=== PATIENT | female | born 2000 | race Caucasian/White ===

== ENCOUNTER 2023-06-13 23:18 | Observation (INO) | payer OTHER ==
[2023-06-13 23:26] VITALS: TEMP 98
[2023-06-13] MEDS ORDERED: SODIUM CHLORIDE 0.9% 1,000 ML IV STA (23:32)
--- NOTE | 2023-06-13 23:36 | ED ---
Psych HPI - General Chief Complaint: Psychiatric Symptoms Stated Complaint: AMS Time Seen by Provider: 06/13/23 23:27 Source: patient, EMS, RN notes reviewed, old records reviewed Mode of arrival: EMS Limitations: no limitations, altered mental status - History of Present Illness Initial Comments: This is a 23-year-old female to the emergency department for evaluation patient presents with alleged overdose of Ambien secondary suicidal thoughts. Patient did take medication overdose as a suicide attempt patient took Ambien pills unknown amount she takes maybe 10-15. Denies other overdose medication other drugs or alcohol MD Complaint: suicidal ideation, feels depressed, altered mental status, other (Suicide attempt) -: unknown Associated Psychiatric Symptoms: depression, suicidal ideation, racing thoughts Quality: constant Improves With: none Worsens With: none Context: not taking psychiatric medications Associated Symptoms: denies other symptoms Treatments Prior to Arrival: placed on mental health hold If Self Harm: admits thoughts of self harm - Related Data Home Medications Medication Instructions Recorded Confirmed Citalopram Hydrobromide 40 mg PO DAILY 06/14/23 06/14/23 [Citalopram HBr] Zolpidem [Ambien] 5 mg PO HS PRN 06/14/23 06/14/23 Allergies Allergy/AdvReac Type Severity Reaction Status Date / Time No Known Allergies Allergy Verified 06/14/23 17:35 Review of Systems ROS Statement: Those systems with pertinent positive or pertinent negative responses have been documented in the HPI. ROS Other: All systems not noted in ROS Statement are negative. General Exam Limitations: altered mental status, physical limitation General appearance: alert, in no apparent distress, anxious Head exam: Present: atraumatic, normocephalic, normal inspection Eye exam: Present: normal appearance, PERRL, EOMI. Absent: scleral icterus, conjunctival injection, periorbital swelling ENT exam: Present: normal exam, mucous membranes moist Neck exam: Present: normal inspection. Absent: tenderness, meningismus, lymphadenopathy Respiratory exam: Present: normal lung sounds bilaterally. Absent: respiratory distress, wheezes, rales, rhonchi, stridor Cardiovascular Exam: Present: regular rate, normal rhythm, normal heart sounds. Absent: systolic murmur, diastolic murmur, rubs, gallop, clicks GI/Abdominal exam: Present: soft, normal bowel sounds. Absent: distended, tenderness, guarding, rebound, rigid Extremities exam: Present: normal inspection, full ROM, normal capillary refill. Absent: tenderness, pedal edema, joint swelling, calf tenderness Back exam: Present: normal inspection Neurological exam: Present: alert, oriented X3, CN II-XII intact Psychiatric exam: Present: normal affect, normal mood Skin exam: Present: warm, dry, intact, normal color. Absent: rash Course Vital Signs 06/13/23 06/14/23 06/14/23 23:21 00:44 00:50 Temperature 98 F Pulse Rate 94 96 90 Respiratory 10 L 18 Rate Blood Pressure 118/96 114/83 115/85 O2 Sat by Pulse 100 97 Oximetry 06/14/23 06/14/23 06/14/23 01:00 01:10 01:20 Temperature Pulse Rate 84 98 86 Respiratory Rate Blood Pressure 115/85 O2 Sat by Pulse Oximetry 06/14/23 06/14/23 06/14/23 01:30 01:40 02:00 Temperature Pulse Rate 92 83 90 Respiratory Rate Blood Pressure O2 Sat by Pulse Oximetry 06/14/23 06/14/23 06/14/23 02:10 02:20 02:30 Temperature Pulse Rate 116 H 81 84 Respiratory Rate Blood Pressure O2 Sat by Pulse Oximetry 06/14/23 06/14/23 06/14/23 02:40 02:50 03:00 Temperature Pulse Rate 85 80 92 Respiratory Rate Blood Pressure O2 Sat by Pulse Oximetry 06/14/23 06/14/23 06/14/23 03:10 03:20 03:30 Temperature Pulse Rate 102 H 105 H 96 Respiratory Rate Blood Pressure O2 Sat by Pulse Oximetry 06/14/23 06/14/23 06/14/23 03:40 03:50 05:40 Temperature Pulse Rate 81 99 Respiratory Rate Blood Pressure 128/81 O2 Sat by Pulse Oximetry 06/14/23 06/14/23 06/14/23 05:50 09:42 11:29 Temperature Pulse Rate 83 102 H Respiratory 17 17 18 Rate Blood Pressure 128/81 106/70 O2 Sat by Pulse 95 98 Oximetry - Reevaluation(s) Reevaluation #1: 06/13/23 23:35 Medical records reviewed Reevaluation #2: 06/14/23 05:42 Medical clear for psychiatric evaluation Reevaluation #3: 06/14/23 05:43 Patient evaluated by psychiatry, still remained mildly somnolent, will admit for medical secondary to overdose Reevaluation #4: 06/13/23 23:35 Was pt. sent in by a medical professional or institution (MANI Barfield, STORE CLERK CHECKER, urgent care, hospital, or halfway...) When possible be specific @ -no Did you speak to anyone other than the patient for history (EMS, parent, family, police, friend...)? What history was obtained from this source @ -no Did you review nursing and triage notes (agree or disagree)? Why? @ -agree Are old charts reviewed (outside hosp., previous admission, EMS record, old EKG, old radiological studies, urgent care reports/EKG's, halfway records)? Report findings @ -yes Differential Diagnosis (chest pain, altered mental status, abdominal pain women, abdominal pain men, vaginal bleeding, weakness, fever, dyspnea, syncope, headache, dizziness, GI bleed, back pain, seizure, CVA, palpatations, mental health, musculoskeletal)? @ -prior EKG interpreted by me (3pts min.). @ -yes X-rays interpreted by me (1pt min.). @ -no CT interpreted by me (1pt min.). @ -no U/S interpreted by me (1pt. min.). @ -no What testing was considered but not performed or refused? (CT, X-rays, U/S, labs)? Why? @ -none What meds were considered but not given or refused? Why? @ -none Did you discuss the management of the patient with other professionals (pro fessionals i.e. MANI Barfield, STORE CLERK CHECKER, lab, RT, psych nurse, vp digital marketing social media and crm, lead printer, teacher, chairman & chief executive officer, case worker)? Give summary @ -no Was smoking cessation discussed for >3mins.? @ -no Was critical care preformed (if so, how long)? @ -no Were there social determinants of health that impacted care today? How? (Homelessness, low income, unemployed, alcoholism, drug addiction, transportation, low edu. Level, literacy, decrease access to med. care, fci, rehab)? @ -none Was there de-escalation of care discussed even if they declined (Discuss DNR or withdrawal of care, Hospice)? DNR status @ -no What co-morbidities impacted this encounter? (DM, HTN, Smoking, COPD, CAD, Cancer, CVA, ARF, Chemo, Hep., AIDS, mental health diagnosis, sleep apnea, morbid obesity)? @ -none Was patient admitted / discharged? Hospital course, mention meds given and route, prescriptions, significant lab abnormalities, going to OR and other pertinent info. @ - 23-year-old female the admitted for psychiatric evaluation and treatment, admitted as medical overdose secondary to persistent somnolence Admitted Undiagnosed new problem with uncertain prognosis? @ -no Drug Therapy requiring intensive monitoring for toxicity (Heparin, Nitro, Insulin, Cardizem)? @ -no Were any procedures done? @ -no Diagnosis/symptom? @ -Overdose, suicide attempt Acute, or Chronic, or Acute on Chronic? @ -Acute Uncomplicated (without systemic symptoms) or Complicated (systemic symptoms)? @ -Complicated Side effects of treatment? @ -no Exacerbation, Progression, or Severe Exacerbation? @ -exacerbation Poses a threat to life or bodily function? How? (Chest pain, [place], [place], pneumonia, PE, COPD, DKA, ARF, appy, cholecystitis, CVA, Diverticulitis, Homicidal, Suicidal, threat to staff... and all critical care pts) @ -yes - Consultations Consultation #1: Spoke with PMH regarding overdose admission psychiatric evaluation are agreeable Medical Decision Making - Medical Decision Making 23-year-old female the admitted for psychiatric evaluation and treatment, admitted as medical overdose secondary to persistent somnolence - Lab Data Result diagrams: 06/13/23 23:32 06/13/23 23:32 Lab Results 06/13/23 06/13/23 Range/Units 23:32 23:32 WBC 8.5 (3.8-10.6) k/uL RBC 4.27 (3.80-5.40) m/uL Hgb 13.3 (11.4-16.0) gm/dL Hct 38.0 (34.0-46.0) % MCV 89.0 (80.0-100.0) fL MCH 31.0 (25.0-35.0) pg MCHC 34.9 (31.0-37.0) g/dL RDW 13.0 (11.5-15.5) % Plt Count 247 (150-450) k/uL MPV 8.9 Neutrophils % 49 % Lymphocytes % 39 % Monocytes % 7 % Eosinophils % 2 % Basophils % 1 % Neutrophils # 4.2 (1.3-7.7) k/uL Lymphocytes # 3.3 (1.0-4.8) k/uL Monocytes # 0.6 (0-1.0) k/uL Eosinophils # 0.2 (0-0.7) k/uL Basophils # 0.1 (0-0.2) k/uL Sodium 134 L (137-145) mmol/L Potassium 4.8 (3.5-5.1) mmol/L Chloride 108 H (98-107) mmol/L Carbon Dioxide 19 L (22-30) mmol/L Anion Gap 7 mmol/L BUN 7 (7-17) mg/dL Creatinine 0.56 (0.52-1.04) mg/dL Est GFR (CKD-EPI)AfAm >90 (>60 ml/min/1.73 sqM) Est GFR (CKD-EPI)NonAf >90 (>60 ml/min/1.73 sqM) Glucose 80 (74-99) mg/dL Calcium 8.6 (8.4-10.2) mg/dL Total Bilirubin 0.7 (0.2-1.3) mg/dL AST 40 H (14-36) U/L ALT 28 (4-34) U/L Alkaline Phosphatase 67 (38-126) U/L Total Protein 7.0 (6.3-8.2) g/dL Albumin 3.7 (3.5-5.0) g/dL Lipase 89 (23-300) U/L Salicylates <1.0 mg/dL Acetaminophen <10.0 ug/mL Serum Alcohol <10 mg/dL - EKG Data -: EKG Interpreted by Me (EKG is sinus 81 VA 159 QRS 86 QTc 429) Disposition Clinical Impression: Depression, Suicidal ideation, Attempted suicide, Altered mental status Disposition: ADMITTED IP TO THIS HOSP Condition: Stable Is patient prescribed a controlled substance at d/c from ED?: No Time of Disposition: 05:40
[2023-06-14 00:17] LABS: ALT 28 U/L (4-34); Acetaminophen <10.0 ug/mL; African American GFR (CKD) >90 (>60 ml/min/1.73 sqM); Alcohol <10 mg/dL; Anion Gap 7 mmol/L; Basophils # (A) 0.1 k/uL (0-0.2); Basophils % (A) 1 %; Blood Urea Nitrogen 7 mg/dL (7-17); Calcium 8.6 mg/dL (8.4-10.2); Carbon Dioxide 19 mmol/L (22-30); Chloride 108 mmol/L (98-107); Eosinophils # (A) 0.2 k/uL (0-0.7); Eosinophils % (A) 2 %; Glucose 80 mg/dL (74-99); HGB 13.3 gm/dL (11.4-16.0); Lipase 89 U/L (23-300); Lymphocytes # (A) 3.3 k/uL (1.0-4.8); Lymphocytes % (A) 39 %; MCHC 34.9 g/dL (31.0-37.0); Mean Platelet Volume 8.9; Monocytes # (A) 0.6 k/uL (0-1.0); Monocytes % (A) 7 %; Neutrophils # (A) 4.2 k/uL (1.3-7.7); Neutrophils % (A) 49 %; Non-African American GFR(CKD) >90 (>60 ml/min/1.73 sqM); Platelet Count 247 k/uL (150-450); RBC 4.27 m/uL (3.80-5.40); Salicylate <1.0 mg/dL; Sodium 134 mmol/L (137-145); Total Bilirubin 0.7 mg/dL (0.2-1.3); WBC 8.5 k/uL (3.8-10.6)
[2023-06-14 00:32] LABS: Potassium 4.8 mmol/L (3.5-5.1)
[2023-06-14 00:33] LABS: AST 40 U/L (14-36); Albumin 3.7 g/dL (3.5-5.0); Alkaline Phosphatase 67 U/L (38-126)
[2023-06-14] MEDS ORDERED: NALOXONE 0.4 MG/ML 1 ML VIAL IV PRN (05:33)
[2023-06-14] MEDS ORDERED: ONDANSETRON 4 MG/2 ML VIAL IVP PRN (05:33)
[2023-06-14 05:59] LABS: Appearance,Urine Clear (Clear); Bilirubin,Urine Negative (Negative); Blood,Urine Negative (Negative); Color,Urine Yellow; Glucose,Urine (UA) Negative (Negative); Ketones,Urine Negative (Negative); Leukocyte Esterase,Urine Negative (Negative); Nitrite,Urine Negative (Negative); PH, Urine 6.5 (5.0-8.0); Protein,Urine Negative (Negative); Specific Gravity,Urine 1.015 (1.001-1.035); Urobilinogen,Urine 0.2 mg/dL (<2.0)
[2023-06-14 06:13] LABS: Amphetamine Screen,Urine Not Detected (NotDetected); Barbiturate Screen,Urine Not Detected (NotDetected); Benzodiazepines Screen,Urine Not Detected (NotDetected); Cocaine Screen,Urine Not Detected (NotDetected); Methadone Screen, Urine Not Detected (NotDetected); Opiate Screen,Urine Not Detected (NotDetected); Oxycodone Screen, Urine Not Detected (NotDetected); Phencyclidine Screen,Urine Not Detected (NotDetected); Tricyclic Antidepressant,Urine Not Detected (NotDetected); Urn Cannabinoid Scrn Detected (NotDetected)
[2023-06-14 11:30] VITALS: BP 106/70; PULSE 102; RESP 18
--- NOTE | 2023-06-14 12:30 | P.HPIM ---
History of Present Illness 23 year-old female admitted for Ambien overdose took about 10-15 pills. And to commit suicide patient is depressed. Patient does have a urine drug screen positive for marijuana but doesn't drink alcohol on doesn't use any other drugs. Patient is still drowsy but the leg is more awake now. Labs and EKG are essentially within normal limits except for serum sodium of 134. REVIEW OF SYSTEMS: CONSTITUTIONAL: No fever, no malaise, no fatigue. HEENT: No recent visual problems or hearing problems. Denied any sore throat. CARDIOVASCULAR: No chest pain, orthopnea, PND, no palpitations, no syncope. PULMONARY: No shortness of breath, no cough, no hemoptysis. GASTROINTESTINAL: No diarrhea, no nausea, no vomiting, no abdominal pain. NEUROLOGICAL: No headaches, no weakness, no numbness. HEMATOLOGICAL: Denies any bleeding or petechiae. GENITOURINARY: Denies any burning micturition, frequency, or urgency. MUSCULOSKELETAL/RHEUMATOLOGICAL: Denies any joint pain, swelling, or any muscle pain. ENDOCRINE: Denies any polyuria or polydipsia. The rest of the 14-point review of systems is negative. PHYSICAL EXAMINATION: GENERAL: The patient is alert and oriented x3, not in any acute distress. Well developed, well nourished. HEENT: Pupils are round and equally reacting to light. EOMI. No scleral icterus. No conjunctival pallor. Normocephalic, atraumatic. No pharyngeal erythema. No thyromegaly. CARDIOVASCULAR: S1 and S2 present. No murmurs, rubs, or gallops. PULMONARY: Chest is clear to auscultation, no wheezing or crackles. ABDOMEN: Soft, nontender, nondistended, normoactive bowel sounds. No palpable organomegaly. MUSCULOSKELETAL: No joint swelling or deformity. EXTREMITIES: No cyanosis, clubbing, or pedal edema. NEUROLOGICAL: Gross neurological examination did not reveal any focal deficits. SKIN: No rashes. Assessment and plan -Ambien overdose: Patient probably will be okay to be discharged to psychiatric floor later today when she is more awake. -Hyponatremia mild hyponatremia: Continue with IV fluids -Hyperchloremic metabolic acidosis expected to improve with discontinue additional IV fluids -Depression and suicidal ideation: Management as per psychiatry Patient probably can be discharged later today Medications and Allergies Home Medications Medication Instructions Recorded Confirmed Type Citalopram Hydrobromide 40 mg PO DAILY 06/14/23 06/14/23 History [Citalopram HBr] Zolpidem [Ambien] 5 mg PO HS PRN 06/14/23 06/14/23 History Allergies Allergy/AdvReac Type Severity Reaction Status Date / Time Unable to Assess Allergy Verified 06/14/23 09:12 Physical Exam Vitals: Vital Signs Temp Pulse Resp BP Pulse Ox 06/14/23 11:29 102 H 18 106/70 98 06/14/23 09:42 17 06/14/23 05:50 83 17 128/81 95 06/14/23 05:40 128/81 06/14/23 03:50 99 06/14/23 03:40 81 06/14/23 03:30 96 06/14/23 03:20 105 H 06/14/23 03:10 102 H 06/14/23 03:00 92 06/14/23 02:50 80 06/14/23 02:40 85 06/14/23 02:30 84 06/14/23 02:20 81 06/14/23 02:10 116 H 06/14/23 02:00 90 06/14/23 01:40 83 06/14/23 01:30 92 06/14/23 01:20 86 06/14/23 01:10 98 06/14/23 01:00 84 115/85 06/14/23 00:50 90 18 115/85 97 06/14/23 00:44 96 114/83 06/13/23 23:21 98 F 94 10 L 118/96 100 Intake and Output 06/13/23 06/14/23 06/14/23 22:59 06:59 14:59 Other: Weight 108.862 kg Results CBC & Chem 7: 06/13/23 23:32 06/13/23 23:32 Labs: Abnormal Lab Results - Last 24 Hours (Table) 06/13/23 06/14/23 Range/Units 23:32 05:37 Sodium 134 L (137-145) mmol/L Chloride 108 H (98-107) mmol/L Carbon Dioxide 19 L (22-30) mmol/L AST 40 H (14-36) U/L U Marijuana (THC) Screen Detected H (NotDetected)
--- NOTE | 2023-06-14 13:33 | P.CN ---
Psychiatric Consult - . Consult date: 06/14/23 Consult:: 06/14/23 12:53 IDENTIFYING DATA: This patient is a 23 yo female, currently living with her ex-mikey's mother in there have, she works as a massage therapist, she has no kids. REASON FOR REFERRAL: Psychiatry was consulted for OD and Suicide attempt HISTORY OF PRESENT ILLNESS: The patient presented to the hospital yesterday after an overdose on Ambien as a suicide attempt. Patient apparently took 10-15 pills of her Ambien the day before for coming into the hospital. Patient's urine drug screen was positive for THC. Patient was seen today in her room and agreeable to speak to keno writer/runner. She appeared to be fairly constricted in affect, appears to be depressed and was somewhat guarded/evasive. She did state that she was feeling alone and sad. She claims that she isn't having poor sleep lately as well. Claims that she has had significant stressors as of late including her mother dying by suicide attempt about 2 years ago. Patient also states that her father recently was imprisoned for attempted murder. She claims that about a month ago her and her fianc split up due to infidelity reasons. States that she has been finding it difficult to cope with this and has been staying at her ex-mikey's mothers house. States that her depression has been getting worse for about 1-2 months. States that she has high levels of anxiety. Claims that she overdosed at home in her room and then came out of the kitchen for dinner however was noticed by the family that she was stumbling and was confused and they called EMS. Patient claims that she is still having suicidal thoughts, no intent or plan at this time, denying any homicidal ideations. Patient denies any auditory, visual hallucinations and denies any paranoia or delusions. Patients admits to using cannabis occasionally, mainly edibles. She states that her sleep has been poor appetite has been poor as well. PAST PSYCHIATRIC HISTORY: Patient has a a history of bipolar and depression. Patient states that she is currently on Celexa 40 mg daily and also Ambien for sleep. Patient denies any previous psychiatric hospitalizations. She claims that she follows up at [facility] with her counsellor. States that she had 1 suicide attempt by overdose several years ago. PAST MEDICAL HISTORY: see medical H and P ALLERGIES: as per EMR. CHEMICAL DEPENDENCY HISTORY: as per HPI. FAMILY PSYCHIATRIC/SUBSTANCE USE HISTORY: Claims that her mother committed suicide, father abused alcohol and was bipolar. She states that her sister also a diagnosis of bipolar disorder. SOCIAL HISTORY: Patient was born and raised in [facility]. States that she completed high school and did massage therapy school. States that she does not have any legal history. Claims that she is currently living in a house with her ex-fianc's mother, she works as a massage therapist. She has no kids. MENTAL STATUS EXAM: General Appearance: Patient appears to be overweight, wearing glasses, stated age is alert, guarded/evasive, poor eye contact. Patient appears to have fair hygiene and grooming wearing hospital gown Behavior: Patient is calmly lying in bed without any agitated behavior. Constricted. Guarded. Speech: Patient's speech is fluent and nonpressured. Monotone. Mood/Affect: Patient reports their mood is "depressed", affect is congruent and constricted Suicidality/Homicidality: Patient denies having any suicidal or homicidal ideation intent or plan. Perceptions: Patient denies any visual hallucinations and denies any auditory hallucinations Though content/process: There is no evidence of any delusional thought content and thought process is linear and goal-directed. concrete. Memory and concentration: AOX3, grossly intact for the purposes of this session. Can spell "WORLD" backwards Judgment and insight: poor IMPRESSIONS: Suicide attempt by overdosing on medication Depressive disorder NOS, likely bipolar depression cannabis use disorder mild PLAN: -At this time patient DOES meet criteria for inpatient psychiatric admission. -Would recommend the following medication changes/additions: d/c Ambien and Celexa, start zoloft 50 mg daily for mood/anxiety, lamictal 25 mg bid for mood stabilization/depression. trazodone 50 mg qhs for sleep -Continue 1:1 sitter for safety until patient is safely transferred to the MHU -Cannot leave AMA at this time. Patient will need a petition and certification if attempting to leave AMA. -When medically stable, patient is eligible for transfer to a psych bed when available. -Communicated plan to patient's nurse and EPS nurse -Psychiatry will sign off at this time -Please contact with any questions. 06/14/23 13:25
[2023-06-15] MEDS ORDERED: CITALOPRAM HYDROBROMIDE 20 MG TAB PO SCH (09:00)
--- NOTE | 2023-06-15 17:15 | P.DS ---
Providers Date of admission: 06/14/23 05:33 Attending physician: Tyson Cadet Consults: 06/14/23 05:33 Consult Physician Routine Consulting Provider: Jason Levy Consult Reason/Comments: SI,OD Do you want consulting provider notified?: Yes Primary care physician: [facility] Hospital Course: Final Diagnosis -Ambien overdose: -Hyponatremia mild hyponatremia: Continue with IV fluids -Hyperchloremic metabolic acidosis expected to improve with discontinue additional IV fluids -Depression and suicidal ideation: Management as per psychiatry Discharge Disposition Patient is more awake and medically stable to discharge to inpatient psychiatry floor. Medications per psychiatry recommending to stay off ambien. 23 year-old female admitted for Ambien overdose took about 10-15 pills. And to commit suicide patient is depressed. Patient does have a urine drug screen positive for marijuana but doesn't drink alcohol on doesn't use any other drugs. Patient is still drowsy but the leg is more awake now. Labs and EKG are essentially within normal limits except for serum sodium of 134. Patient has been evalauted by psychiatry and recommended for [facility] psych treatment and patient is agreebale. [facility] be [facility] today. The impression and plan of care has been dictated by Shakira Bolanos Nurse Practitioner as directed. Dr. Charito MD I have performed a history and physical examination and medical decision making of this patient, discussed the same with the dictator, and agree with the dictators assessment and plan as written, documented as a scribe. Based on total visit time, I have performed more than 50% of this visit. Patient Condition at Discharge: Stable Plan - Discharge Summary New Discharge Prescriptions: No Action Citalopram Hydrobromide [Citalopram HBr] 40 mg PO DAILY Zolpidem [Ambien] 5 mg PO HS PRN PRN Reason: Insomnia Discharge Medication List Citalopram Hydrobromide [Citalopram HBr] 40 mg PO DAILY 06/14/23 [History] Zolpidem [Ambien] 5 mg PO HS PRN 06/14/23 [History] Follow up Appointment(s)/Referral(s): None,Stated [REFERRING] - 1-2 days Discharge Disposition: TRANSFER TO PSYCH HOSP/UNIT
== END 2023-06-14 17:22 ==
LOC: EC 23:18 → 5NMEDONC 06-14 05:33
PROVIDERS: ADMIT Hospitalist; ATTEND Hospitalist
DX: T42.6X2A Poisoning by other antiepileptic and sedative-hypnotic drugs, intentional self-harm, initial encounter (principal); Z79.899 Other long term (current) drug therapy; F32.A Depression, unspecified; E87.1 Hypo-osmolality and hyponatremia; E87.29 Other acidosis; E87.8 Other disorders of electrolyte and fluid balance, not elsewhere classified; R45.851 Suicidal ideations; F41.9 Anxiety disorder, unspecified; Z81.8 Family history of other mental and behavioral disorders; Z81.1 Family history of alcohol abuse and dependence
CPT/HCPCS: 96360; 99285; 36415; 93005; 80053; 83690; 85025; 81003; 81025; 80306; 80143; 87635; 80179; G0378; G0480; 80320

== ENCOUNTER 2023-06-14 17:32 | Inpatient (IN) | payer MEDICAID ==
[2023-06-14] MEDS ORDERED: ACETAMINOPHEN TAB 325 MG TAB PO PRN (17:35)
[2023-06-14] MEDS ORDERED: MAGNESIUM HYDROXIDE 2,400 MG/30 ML CUP PO PRN (17:35)
[2023-06-14] MEDS ORDERED: MAG HYDROX/AL HYDROX/SIMETH 30 ML CUP PO PRN (17:35)
[2023-06-14] MEDS ORDERED: OLANZapine 10 MG VIAL IM PRN (17:43)
[2023-06-14] MEDS ORDERED: OLANZapine 5 MG TAB PO PRN (17:43)
[2023-06-14] MEDS ORDERED: hydrOXYzine HCL 50 MG/ML 1 ML VIAL IM PRN (17:44)
[2023-06-14] MEDS ORDERED: hydrOXYzine pamoate 25 MG CAP PO PRN (17:45)
[2023-06-14] MEDS: traZODone HCL 50 MG TAB PO SCH (20:59)
[2023-06-14] MEDS: lamoTRIgine 25 MG TAB PO SCH (20:59)
[2023-06-15] MEDS: SERTRALINE 50 MG TAB PO SCH (09:17)
[2023-06-15] MEDS: lamoTRIgine 25 MG TAB PO SCH ×2 (09:17→20:46)
--- NOTE | 2023-06-15 11:28 | P.HP ---
Psychiatric H&P - . H&P Date: 06/15/23 History & Physical: Allergies Allergy/AdvReac Type Severity Reaction Status Date / Time No Known Allergies Allergy Verified 06/14/23 17:35 Vital Signs Temp 98.6 F 06/15/23 06:36 Pulse 72 06/15/23 06:36 Resp 19 06/15/23 06:36 BP 123/67 06/15/23 06:36 Pulse Ox 95 06/15/23 06:36 FiO2 Intake & Output 06/14/23 06/15/23 06/15/23 18:59 06:59 18:59 Weight 98 kg Laboratory Last Values TSH 1.690 mIU/L (0.465-4.680) 06/15/23 08:29 06/15/23 11:21 This is a 23-year-old female with a long history of depressive disorder who was hospitalized after patient reports that she took an overdose for about 12 Ambien tablets She does not know the dosage Patient reports that she was frustrated and angry over multiple issues that includes her boyfriend who has been cheating on her She also reports history of chronic depression for the last 5 years She said that she was been seeing her primary care doctor but has never seen a psychiatrist consistently for follow-up She says that she is currently living with her ex-fianc's mother was supportive and plans to continue to live with her She reports that she has multiple psychosocial stressors including her mother who committed suicide about 5 years ago She says that her father is in detention she says that she finished high school but has not worked She denies any other substance use Said that she saw Dr. Hines briefly on the medical floor before her transfer to the psychiatric unit Past history personal social history patient remains very vague and superficial Patient says that she is currently not working and is living with her boyfriend's mother She said that she would like to work on having a new place of her own since she is breaking up with her boyfriend Patient denies any other support system she denies any alcohol or substance use Mental status examination: General Appearance: Patient appears to be stated age is alert, directable, and attempts to cooperate. Patient appears to have slightly disheveled hygiene and grooming. Behavior: Patient is seated without any agitated behavior. Normal psychomotor activity. Eye contact is appropriate. Speech: Patient's speech is fluent and nonpressured. Mood/Affect: Patient reports their mood is depressed, affect is congruent and appears to be downcast Suicidality/Homicidality: Patient reports chronic suicidal ideation. She reports no intention or plan at this time. She denies any homicidal ideation, intention, and/or plan. Perceptions: Patient denies any visual hallucinations and denies any auditory hallucinations Though content/process: There is no evidence of any delusional thought content and thought process is linear and goal-directed. Memory and concentration: AOX3, grossly intact for the purposes of this session. Can spell "WORLD" backwards Judgment and insight: poor STRENGTHS/WEAKNESSES: Strength is that the patient is resilient. Weakness is that the patient has poor frustration tolerance and impulse control. INTELLECT: average IMPRESSIONS: Major depressive disorder recurrent Rule out Cluster B personality disorder - borderline personality disorder PLAN: -Patient is admitted under voluntary status to MHU for stabilization of psychiatric symptoms and safety. Patient signed adult voluntary form and medication consent and is placed in patient's chart. -Medications : Patient has already been started on Zoloft for depression -Zyprexa and Vistaril PRN for agitation/aggression -Patient was informed of the risks, benefits and side effects of the medication and patient verbally consented to taking the medications. -Internal Medicine consult to perform medical evaluation and physical. -SW on board for discharge planning. Encourage patient to participate in groups to work on coping skills. 06/15/23 11:37 Thang Black M.D.
[2023-06-15 14:54] VITALS: BMI 33.8
--- NOTE | 2023-06-15 15:20 | P.CONS ---
History of Present Illness - Reason for Consult Consult date: 06/15/23 - History of Present Illness This is a 23 year-old female admitted for Ambien overdose took about 10-15 pills. This was a suicide attempt patient reports increased feelings of depression due to life stessors including living situation and breaking up with her boyfriend. Patients mother committed suicide 5 years ago and her father is in group home. Not working currently. Patient does have a urine drug screen positive for marijuana but doesn't drink alcohol and denies use any other drugs. Patient is more awake now. Labs and EKG are essentially within normal limits except for serum sodium of 134. No reported medical history other than insomnia and depression. Had thyroid function and hgba1c checked and both normal. Hemodynamically stable. REVIEW OF SYSTEMS: CONSTITUTIONAL: No fever, no malaise, no fatigue. HEENT: No recent visual problems or hearing problems. Denied any sore throat. CARDIOVASCULAR: No chest pain, orthopnea, PND, no palpitations, no syncope. PULMONARY: No shortness of breath, no cough, no hemoptysis. GASTROINTESTINAL: No diarrhea, no nausea, no vomiting, no abdominal pain. NEUROLOGICAL: No headaches, no weakness, no numbness. HEMATOLOGICAL: Denies any bleeding or petechiae. GENITOURINARY: Denies any burning micturition, frequency, or urgency. MUSCULOSKELETAL/RHEUMATOLOGICAL: Denies any joint pain, swelling, or any muscle pain. ENDOCRINE: Denies any polyuria or polydipsia. The rest of the 14-point review of systems is negative. PHYSICAL EXAMINATION: GENERAL: The patient is alert and oriented x3, not in any acute distress. Well developed, well nourished. HEENT: Pupils are round and equally reacting to light. EOMI. No scleral icterus. No conjunctival pallor. Normocephalic, atraumatic. No pharyngeal erythema. No thyromegaly. CARDIOVASCULAR: S1 and S2 present. No murmurs, rubs, or gallops. PULMONARY: Chest is clear to auscultation, no wheezing or crackles. ABDOMEN: Soft, nontender, nondistended, normoactive bowel sounds. No palpable organomegaly. MUSCULOSKELETAL: No joint swelling or deformity. EXTREMITIES: No cyanosis, clubbing, or pedal edema. NEUROLOGICAL: Gross neurological examination did not reveal any focal deficits. SKIN: No rashes. Assessment and Plan Suicide attempt with overdose on ambien History of depression Insomnia GI prophylaxis Full Code Plan Medical chart reviewed, TSH normal and HgbA1C normal. Ambien is discontinued on discharge Started on zoloft and all other medications per psychiatry. Thank you for this consultation we will continue to follow along as needed this hospital stay. The impression and plan of care has been dictated by Shakira Bolanos, Nurse Practitioner as directed. Dr. Charito MD I have performed a history and physical examination and medical decision making of this patient, discussed the same with the dictator, and agree with the dictators assessment and plan as written, documented as a scribe. Based on total visit time, I have performed more than 50% of this visit. Past Medical History Past Medical History: No Reported History History of Any Multi-Drug Resistant Organisms: None Reported Past Surgical History: No Surgical Hx Reported Past Anesthesia/Blood Transfusion Reactions: No Reported Reaction Past Psychological History: Anxiety, Depression Smoking Status: Never smoker Past Alcohol Use History: None Reported Past Drug Use History: Marijuana Medications and Allergies Home Medications Medication Instructions Recorded Confirmed Type Citalopram Hydrobromide 40 mg PO DAILY 06/14/23 06/14/23 History [Citalopram HBr] Zolpidem [Ambien] 5 mg PO HS PRN 06/14/23 06/14/23 History Allergies Allergy/AdvReac Type Severity Reaction Status Date / Time No Known Allergies Allergy Verified 06/14/23 17:35 Physical Exam Vitals: Vital Signs Temp Pulse Resp BP Pulse Ox 06/15/23 06:36 98.6 F 72 19 123/67 95 06/14/23 18:18 98.2 F 95 14 146/86 Intake and Output 06/14/23 06/15/23 06/15/23 22:59 06:59 14:59 Other: Weight 98 kg Assessment and Plan Time with Patient: Less than 30
[2023-06-15 15:24] LABS: Chol/HDL Ratio 3.84 Ratio; LDL Cholesterol,Calculated 88.8 mg/dL (0.0-131.0)
[2023-06-15] MEDS: traZODone HCL 50 MG TAB PO SCH (20:46)
[2023-06-16] MEDS: lamoTRIgine 25 MG TAB PO SCH ×2 (08:57→22:37)
[2023-06-16] MEDS: SERTRALINE 50 MG TAB PO SCH (08:57)
--- NOTE | 2023-06-16 09:58 | P.PN ---
Subjective Progress Note Date: 06/16/23 Principal diagnosis: IMPRESSIONS: Major depressive disorder recurrent Rule out Cluster B personality disorder - borderline personality disorder Subjective data: Patient reports that she is feeling better She says that she started to think more positive and has started to think about applying for different place to live She says that she does part-time work and that she feels that she can afford to have apartment although she has not looked into [address] She says that her boyfriend's mother has been very supportive and will still continue to help her with finding the place as well as in general as a support system Patient did not bring up her own family members since her both her parents are out of her support system She states that emotionally she feels better and feels that she may be ready to go home tomorrow Mental status examination: General Appearance: Patient appears to be stated age is alert, directable, and attempts to cooperate. Patient appears to have slightly disheveled hygiene and grooming. Behavior: Patient is seated without any agitated behavior. Normal psychomotor activity. Eye contact is appropriate. Speech: Patient's speech is fluent and nonpressured. Mood/Affect: Patient reports their mood is depressed, affect is congruent and appears to be fair Suicidality/Homicidality: Patient reports chronic suicidal ideation. She reports no intention or plan at this time. She denies any homicidal ideation, intention, and/or plan. Perceptions: Patient denies any visual hallucinations and denies any auditory hallucinations Though content/process: There is no evidence of any delusional thought content and thought process is linear and goal-directed. Memory and concentration: AOX3, grossly intact for the purposes of this session. Can spell "WORLD" backwards Judgment and insight: poor PLAN: -Patient is admitted under voluntary status to MHU for stabilization of psychiatric symptoms and safety. Patient signed adult voluntary form and medication consent and is placed in patient's chart. -Medications : Patient has already been started on Lamictal 25 mg twice a day Hydroxyzine 25 mg every 6 hours when necessary Zoloft for depression -Zyprexa and Vistaril PRN for agitation/aggression -Patient was informed of the risks, benefits and side effects of the medication and patient verbally consented to taking the medications. -Internal Medicine consult to perform medical evaluation and physical. -SW on board for discharge planning. Encourage patient to participate in groups to work on coping skills. 06/16/23 Thang Black M.D. Objective - Vital Signs Vital signs: Vital Signs Temp 97.7 F 06/16/23 06:56 Pulse 58 L 06/16/23 06:56 Resp 16 06/16/23 06:56 BP 103/49 06/16/23 06:56 Pulse Ox 99 06/16/23 06:56 FiO2 Intake & Output 06/15/23 06/16/23 06/16/23 18:59 06:59 18:59 Weight 98 kg - Labs Labs: Abnormal Lab Results - Last 24 Hours (Table) 06/15/23 Range/Units 08:29 Triglycerides 244.00 H (0.00-149.00) mg/dL VLDL Cholesterol, Calc 48.80 H (5.00-40.00) mg/dL
[2023-06-16] MEDS: traZODone HCL 50 MG TAB PO SCH (22:37)
[2023-06-17] MEDS: lamoTRIgine 25 MG TAB PO SCH ×2 (08:48→21:47)
[2023-06-17] MEDS: SERTRALINE 50 MG TAB PO SCH (08:48)
[2023-06-17] MEDS ORDERED: lamoTRIgine 25 MG TAB PO ONE (11:42)
--- NOTE | 2023-06-17 11:49 | P.PN ---
Progress Note - Text Progress Note Date: 06/17/23 Interval History: Patient was seen taking part in activities group today and was directable and agreeable to speak with chart writer in the office. Patient states that she is feeling a bit more positive about her medications. States that the Lamictal has not been causing any side effects or rash at this time. States that she does still have some anxiety and was asking more questions about the medications. We spoke about adjusting the doses which she is okay with and continue to take them. Claims that she is trying to participate in groups and socializes with other patients on the unit. She was asking about potential discharge days and how that looks like. Claims that she had a difficult time sleeping last night and states that the trazodone has been "plateauing". We spoke about increasing it. She states that her appetite is fair at this time. At this time patient denies any current suicidal or homical ideations, intent or plan. Patient denies any auditory, visual hallucinations and denies any paranoia or delusions. Patient denies any side effects from the medications and has been compliant with meds. Mental Status Exam: General Appearance: [Patient appears to be mildly overweight, wearing glasses, curly hair, stated age is alert, directable, and cooperative.] Behavior: [Patient is calmly seated without any agitated behavior.] More cooperative today. Improving eye contact. Speech: Patient's speech is fluent and nonpressured. Mood/Affect: Mood is anxious yet is improving mildly, affect is congruent Suicidality/Homicidality: Patient denies having any suicidal or homicidal ideation intent or plan. Perceptions: Patient denies any visual hallucinations [and denies any auditory hallucinations] Though content/process: [There is no evidence of any delusional thought content and thought process is linear and goal-directed.] Focused on medications. Memory and concentration: AOX3, grossly intact for the purposes of this session Judgment and insight: Improving mildly Assessment: Bipolar disorder, current episode depressed Rule out Cluster B personality disorder PLAN: -Patient is admitted under voluntary status to MHU for stabilization of psychiatric symptoms and safety. Patient signed adult voluntary form and medication consent and is placed in patient's chart. -Medications : Zoloft 50 mg daily for mood/anxiety, increase trazodone to 100 mg daily at bedtime for insomnia/mood, increase Lamictal to 50 mg twice a day for mood stabilization/depression. -Zyprexa and Vistaril PRN for agitation/aggression -SW on board for discharge planning. Encourage patient to participate in groups to work on coping skills. Likely discharge in 2-3 days back home. SW to get more collateral from ex fiances parents and see if she is allowed back and to ensure home envt is safe.
[2023-06-17] MEDS: traZODone HCL 100 MG TAB PO SCH (21:47)
[2023-06-18] MEDS: SERTRALINE 50 MG TAB PO SCH (08:50)
[2023-06-18] MEDS: lamoTRIgine 25 MG TAB PO SCH ×2 (08:50→22:52)
--- NOTE | 2023-06-18 09:02 | P.PN ---
Progress Note - Text Progress Note Date: 06/18/23 Interval History: Patient was seen this morning after taking her medications and was directable and agreeable to speak with newspaper writer in the office. Patient states that she slept much better last night with the trazodone increase, states that she did not hear anybody last night and slept throughout the night. Patient states that she wants to remain on the same dose of her medications at this time. States that the Lamictal has not been causing any side effects or rash at this time. Claims that she is trying to participate in groups and socializes with other patients on the unit. She was more concrete today and somewhat guarded. Claims that she did speak with her ex fiances mother and did not report any issues. She states that her appetite is fair at this time. At this time patient denies any current suicidal or homical ideations, intent or plan. Patient denies any auditory, visual hallucinations and denies any paranoia or delusions. Patient denies any side effects from the medications and has been compliant with meds. Mental Status Exam: General Appearance: Patient appears to be mildly overweight, wearing glasses, curly hair, stated age is alert, directable, and cooperative. Behavior: Patient is calmly seated without any agitated behavior. More cooperative today. Improving eye contact. Speech: Patient's speech is fluent and nonpressured. concrete. Mood/Affect: Mood is improving mildly, affect is congruent Suicidality/Homicidality: Patient denies having any suicidal or homicidal ideation intent or plan. Perceptions: Patient denies any visual hallucinations and denies any auditory hallucinations Though content/process: There is no evidence of any delusional thought content and thought process is linear and goal-directed. Focused on medications. Memory and concentration: AOX3, grossly intact for the purposes of this session Judgment and insight: Improving mildly Assessment: Bipolar disorder, current episode depressed R/o Cluster B personality disorder PLAN: -Patient is admitted under voluntary status to MHU for stabilization of psychiatric symptoms and safety. Patient signed adult voluntary form and medication consent and is placed in patient's chart. -Medications : continue Zoloft 50 mg daily for mood/anxiety, trazodone 100 mg daily at bedtime for insomnia/mood, Lamictal 50 mg twice a day for mood stabilization/depression. -Zyprexa and Vistaril PRN for agitation/aggression -SW on board for discharge planning. Encourage patient to participate in groups to work on coping skills. Likely discharge in 1-2 days back home, possibly tomorrow. SW to get more collateral from ex fiances parents today and see if she is allowed back and to ensure home envt is safe.
[2023-06-18] MEDS: traZODone HCL 100 MG TAB PO SCH (22:52)
[2023-06-19] MEDS: SERTRALINE 50 MG TAB PO SCH (09:07)
[2023-06-19] MEDS: lamoTRIgine 25 MG TAB PO SCH (09:07)
[2023-06-19 09:08] VITALS: BP 118/67; PULSE 99; RESP 18; TEMP 97.5
--- NOTE | 2023-06-19 10:32 | P.DS ---
Providers Date of admission: 06/14/23 17:32 Expected date of discharge: 06/19/23 Attending physician: Carlos Hines MD Consults: 06/14/23 17:35 Consult Physician Routine Consulting Provider: Mack Moran Consult Reason/Comments: medical management Do you want consulting provider notified?: Yes Primary care physician: [place] [facility] - Discharge Diagnosis(es) (1) Bipolar disorder current episode depressed Current Visit: Yes Status: Acute Priority: High (2) Overdose of medication Current Visit: Yes Status: Acute Priority: High Hospital Course: Admission HPI: Admission note was completed by Dr Black "This is a 23-year-old female with a long history of depressive disorder who was hospitalized after patient reports that she took an overdose for about 12 Ambien tablets She does not know the dosage Patient reports that she was frustrated and angry over multiple issues that includes her boyfriend who has been cheating on her She also reports history of chronic depression for the last 5 years She said that she was been seeing her primary care doctor but has never seen a psychiatrist consistently for follow-up She says that she is currently living with her ex-fianc's mother was supportive and plans to continue to live with her She reports that she has multiple psychosocial stressors including her mother who committed suicide about 5 years ago She says that her father is in intermediate she says that she finished high school but has not worked She denies any other substance use Said that she saw Dr. Hines briefly on the medical floor before her transfer to the psychiatric unit." Hospital course: Upon admission to the unit patient was directable and agreeable to commence treatment and signed adult voluntary form. Patient got along well with other patients on the unit and followed unit protocol. Patient was compliant with the medications and denied any side effects throughout hospital course. Patient was started on Zoloft 50 mg daily for mood/anxiety, trazodone 100 mg daily at bedtime for insomnia/mood, Lamictal 50 mg twice a day for mood stabilization/depression. Patient spoke of her stressors and engaged in therapy both group and individual. Patient was also seen by medical team for history and physical exam. Throughout the course of the hospitalization patient gradually improved with regards to mood, anxiety, sleep and became more future oriented with improved insight and judgment. On the day of discharge patient denied any suicidal or homicidal ideations intent or plan denied any auditory or visual hallucinations. Patient endorsed wanting to live for her health and future. The patient denied any access to guns or weapons. Patient denied any paranoia and did not endorse any delusions. Patient does not have a significant history of substance abuse and was counseled on abstaining from all substances including alcohol and marijuana. Patient was also counseled on the medications and need for regular compliance and was encouraged to follow-up with their outpatient appointment for mental health and also for primary care. Prior to discharge a family meeting will be arranged by social media campaign manager to answer any questions and ensure safety upon discharge. Mental status exam: General Appearance: Patient appears to be wearing glasses, curly hair, stated age is alert, pleasant, and cooperative. Patient is in no acute distress and has improved hygiene and grooming Behavior: Patient is calmly seated without any agitated behavior. cooperative. Speech: Patient's speech is fluent and nonpressured. Mood/Affect: Patient reports their mood is "better", affect is congruent and euthymic. Suicidality/Homicidality: Patient denies having any suicidal or homicidal ideation intent or plan. Perceptions: Patient denies any auditory or visual hallucinations. Though content/process: There is no evidence of any delusional thought content and thought process is linear and goal-directed. more future oriented Memory and concentration: AOX3, grossly intact for the purposes of this session. Can spell "WORLD" backwards correctly. Judgment and insight: improved with guarded prognosis Impression: Bipolar disorder, current episode depressed Overdose of medication Plan: -Continue with discharge today as patient has improved and stabilized psychiatrically and is not currently an imminent threat to herself and/or others. Patient will remain at chronically elevated risk for harm to self and/or others due to her impulsivity. -Continue medications: Zoloft 50 mg daily for mood/anxiety, trazodone 100 mg daily at bedtime for insomnia/mood, Lamictal 50 mg twice a day for mood stabilization/depression. Patient was informed several times about the risk for a potential rash and to discontinue medication and seek urgent medical attention if this does occur, she verbally understood and agreed. -Patient was counseled on the need for medication compliance and appropriate follow-up at mental health and also primary care for medical issues. Patient verbalized understanding and agreed. -Social work to arrange for and conduct family meeting to ensure safety upon discharge and answer any questions/concerns. Social work also to arrange for patients follow up appointments for psychiatric care along with follow up with primary care provider. -Patient counseled on abstaining from recreational drugs and marijuana and alcohol. Was informed/educated on the adverse effects on their physical and mental health. Patient verbally agreed and understood. -Patient was instructed to return to the hospital or seek immediate medical care if their psychiatric or medical symptoms do worsen or reoccur. Allergies Allergy/AdvReac Type Severity Reaction Status Date / Time No Known Allergies Allergy Verified 06/14/23 17:[address] Glu mg/dL 97 mg/dL 06/15/23 08:29 Hemoglobin A1c 5.0 % (<=6.0) 06/15/23 08:29 Triglycerides 244.00 mg/dL (0.00-149.00) H 06/15/23 08:29 Cholesterol 186.00 mg/dL (0.00-200.00) 06/15/23 08:29 LDL Cholesterol, Calc 88.8 mg/dL (0.0-131.0) 06/15/23 08:29 VLDL Cholesterol, Calc 48.80 mg/dL (5.00-40.00) H 06/15/23 08:29 HDL Cholesterol 48.40 mg/dL (40.00-60.00) 06/15/23 08:29 Cholesterol/HDL Ratio 3.84 Ratio 06/15/23 08:29 TSH 1.690 mIU/L (0.465-4.680) 06/15/23 08:29 Lamotrigine 0.4 ug/mL (2.0-15.0) L 06/15/23 08:29 Vital Signs Temp 97.5 F L 06/19/23 09:07 Pulse 99 06/19/23 09:07 Resp 18 06/19/23 09:07 BP 118/67 06/19/23 09:07 Pulse Ox 99 06/18/23 06:00 FiO2 Patient Condition at Discharge: Stable Plan - Discharge Summary Discharge Rx Participant: No New Discharge Prescriptions: New traZODone HCL [Desyrel] 100 mg PO HS 30 Days #30 tab lamoTRIgine [LaMICtal] 50 mg PO BID 30 Days #120 tab Sertraline [Zoloft] 50 mg PO DAILY 30 Days #30 tab Discontinued Citalopram Hydrobromide [Citalopram HBr] 40 mg PO DAILY Zolpidem [Ambien] 5 mg PO HS PRN PRN Reason: Insomnia Discharge Medication List Sertraline [Zoloft] 50 mg PO DAILY 30 Days #30 tab 06/19/23 [Rx] lamoTRIgine [LaMICtal] 50 mg PO BID 30 Days #120 tab 06/19/23 [Rx] traZODone HCL [Desyrel] 100 mg PO HS 30 Days #30 tab 06/19/23 [Rx] Follow up Appointment(s)/Referral(s): [facility] [Outside] - 06/24/23 4:00 pm ([place] Babb DO [Primary Care Provider] - As Needed Discharge Disposition: HOME SELF-CARE
== END 2023-06-19 16:50 | disposition home or self-care (01) | DRG 753 ==
LOC: 3MHU 17:32
PROVIDERS: ADMIT Psychiatry & Neurology Psychiatry; ATTEND Psychiatry & Neurology Psychiatry
DX: F31.30 Bipolar disorder, current episode depressed, mild or moderate severity, unspecified (principal); R45.851 Suicidal ideations; T42.6X2D Poisoning by other antiepileptic and sedative-hypnotic drugs, intentional self-harm, subsequent encounter; F41.9 Anxiety disorder, unspecified; G47.00 Insomnia, unspecified; E66.3 Overweight; Z68.33 Body mass index [BMI] 33.0-33.9, adult; Z79.899 Other long term (current) drug therapy; Z71.3 Dietary counseling and surveillance; Z71.51 Drug abuse counseling and surveillance of drug abuser; Z71.41 Alcohol abuse counseling and surveillance of alcoholic; Z81.8 Family history of other mental and behavioral disorders
CPT/HCPCS: 80061; 80175; 83036; 84443